=== PATIENT | male | born 1960 | race Caucasian/White ===

== ENCOUNTER 2016-10-28 14:20 | Emergency (ER) ==
[2016-10-28] MEDS ORDERED: SODIUM CHLORIDE 1,000 ML IV STA ×2 (14:28→15:58)
--- NOTE | 2016-10-28 14:29 | ED.PDOC ---
General ED Provider: Dr. MONIQUE MOREJON Chief Complaint: Dizziness Stated Complaint: Ritchie is a 56 year old male who has been outisde in the heat afew times this week. Today he went outside again for few hours and started feeling dizzy, sweaty and almost passed out in his car trying to get air conditioning. Time Seen by Physician: 15:00 Information Source: Patient, Family Exam Limitations: No limitations Primary Care Provider: GURPREET ALVAREZ Nursing and Triage Documentation Reviewed and Agree: Yes Neurological Complaint Exam - Syncope/Near Syncope Complaint/Exam Onset/Duration: 1 hour ago Symptoms Are: Still present Number of Episodes: 1 Episodes Witnessed: Yes Loss of Consciousness: No Associated Head Trauma: No Activity at Onset: With exertion Aggravating: None Alleviating: Reports: None Associated Signs and Symptoms: Reports: Decreased oral intake, Diaphoresis, Lightheadedness, Dizziness, Weakness. Denies: Pain, Vomiting, Diarrhea, GI blood loss, Short of air, Chest pain, Palpitations, AMS, Numbness, Headache, Seizure, Remote head trauma, Recent head trauma Cardiac Risk Factors: Reports: Diabetes GI Bleed Risk Factors: Reports: None JVD Present: No Carotid Bruit Present: No Rectal Heme Positive: No Glascow Coma Scale (see protocol): 15 Nystagmus Present: No Gag Reflex Present: Yes Meningeal Signs Positive: No Focal Weakness: Present: None Focal Sensory Loss: Present: None Gait: Normal [id number]: Normal Findings Romberg Test Positive: No Babinski Sign: Negative Right, Negative Left Heel to Toe Normal: Yes [place]-Hallpike Test Positive: No Differential Diagnoses: FL, TIA, Hypovolemia, Metabolic Reaction Quality Indicator For Non-Traumatic Chest Pain/Syncope: EKG Performed Review of Systems - Review Of Systems Constitutional: Reports: Weakness, Sweats, Loss of appetite Eyes: Reports: No symptoms Ears, Nose, Mouth, Throat: Reports: No symptoms Respiratory: Reports: No symptoms Cardiac: Reports: Lightheadedness, Other (near syncopy ) GI: Reports: No symptoms : Reports: No symptoms Musculoskeletal: Reports: No symptoms Skin: Reports: No symptoms Neurological: Reports: Headache, Weakness Endocrine: Reports: No symptoms Hematologic/Lymphatic: Reports: No symptoms All Other Systems: Reviewed and Negative Past Medical History - Past Medical History Previously Healthy: Yes Endocrine: Reports: DM 2, Dyslipidemia Cardiovascular: Reports: Hypertension Respiratory: Reports: None Hematological: Reports: None Gastrointestinal: Reports: None Genitourinary: Reports: None Neuro/Psych: Reports: None Musculoskeletal: Reports: None Cancer: Reports: None - Surgical History General Surgical History: Reports: Hernia Repair - Family History Family History: Reports: Diabetes Physical Exam - Physical Exam Appearance: Ill-appearing, Well-nourished Ill-appearing: Severe Eyes: LUIS ENRIQUE, EOMI, Conjunctiva clear ENT: Ears normal, Nose normal, Oropharynx normal Neck: Supple Respiratory: Airway patent, Breath sounds clear, Breath sounds equal, Respirations nonlabored Cardiovascular: RRR, Pulses normal, No rub, No murmur GI/: Soft, Nontender, No masses, Bowel sounds normal, No Organomegaly Musculoskeletal: Normal strength, ROM intact, No edema, No calf tenderness Skin: Warm, Dry, Normal color Neurological: Sensation intact, Motor intact, Cranial nerves intact, Alert, Oriented Psychiatric: Anxious Interpretation - Radiology Interpretation Radiology Interpretation By: Radiologist Radiology Results: Negative Exam Interpreted: CT Scan - 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 Rate: Normal Rhythm: Sinus Ectopy: None - EKG Interpretation Time of EKG #1: 14:21 Rate: Normal Rhythm: Sinus Ectopy: None [place]: NL ST Segment: Normal Re-Evaluation - Re-Evaluation Time of Re-Evaluation: 17:14 Status: Improved Vital Signs Stable: Yes (131/79) Critical Care Note - Critical Care Note Total Time (mins): 20 Course - Course Hematology/Chemistry: 10/28/16 14:25 10/28/16 14:25 Orders, Labs, Meds: Lab Review 10/28/16 14:25 WBC 10.08 RBC 5.10 Hgb 15.6 Hct 45.0 MCV 88.2 MCH 30.6 MCHC 34.7 RDW Coeff of [place] 12.2 Plt Count 202 Immature Gran % (Auto) 0.2 Neut % (Auto) 65.2 Lymph % (Auto) 25.2 [place] % (Auto) 7.6 Eos % (Auto) 1.4 Baso % (Auto) 0.4 Immature Gran # (Auto) 0.0 Neut # 6.6 Lymph # 2.5 [place] # 0.8 Eos # 0.1 Baso # 0.0 Sodium 138 Potassium 3.9 Chloride 102 Carbon Dioxide 20 L Anion Gap 19.9 BUN 16 Creatinine 1.35 H Estimated GFR (MDRD) 55.00 BUN/Creatinine Ratio 11.85 Glucose 286 H Calcium 9.2 Total Bilirubin 0.63 AST 22 ALT 34 Alkaline Phosphatase 76 Total Creatine Kinase 187 CK-MB (CK-2) 2.8 CK-MB (CK-2) % 1.59321 Troponin I < 0.0100 B-Natriuretic Peptide 18 Total Protein 7.4 Albumin 4.3 Globulin 3.1 Albumin/Globulin Ratio 1.39 Orders Category Date Time Status EKG-(ED ONLY) Stat CARDIO 10/28/16 14:28 Completed ACCUCHECK (ED) [ED ACCUCHECK ASSESSMENT] .ONCE EMERGENCY 10/28/16 15:04 Active 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 .ONCE EMERGENCY 10/28/16 14:27 Active ED IV/MEDIPORT/POWERPORT .ONCE EMERGENCY 10/28/16 14:27 Active B-TYPE NATRIURETIC PEPTIDE Stat LAB 10/28/16 14:25 Completed CBC W/ AUTO DIFF Stat LAB 10/28/16 14:25 Completed COMPREHENSIVE METABOLIC PANEL Stat LAB 10/28/16 14:25 Completed CREATINE KINASE Stat LAB 10/28/16 14:25 Completed TROPONIN I Stat LAB 10/28/16 14:25 Completed 0.9 % Sodium Chloride [Saline Flush] MEDS 10/28/16 14:27 Ordered 1 syr IVF PRN PRN Sodium Chloride 0.9% [Sodium Chloride] 1,000 ml MEDS 10/28/16 14:28 Discontinued IV BOLUS Sodium Chloride 0.9% [Sodium Chloride] 1,000 ml MEDS 10/28/16 15:58 Discontinued IV BOLUS CHEST, 1V AP ONLY Stat RADS 10/28/16 14:[address] HEAD W/O CONTRAST Stat RADS 10/28/16 14:28 Completed Medications Generic Name Dose Route Start Last Admin Trade Name Freq PRN Reason Stop Dose Admin Sodium Chloride 1 syr 10/28/16 14:27 10/28/16 15:04 Saline Flush IVF 1 syr PRN PRN Administration To flush IV Discontinued Medications Generic Name Dose Route Start Last Admin Trade Name Freq PRN Reason Stop Dose Admin Sodium Chloride 1,000 mls @ 1,000 mls/hr 10/28/16 14:28 10/28/16 15:00 Sodium Chloride IV 10/28/16 15:27 1,000 mls/hr BOLUS STA Administration Sodium Chloride 1,000 mls @ 1,000 mls/hr 10/28/16 15:58 10/28/16 16:06 Sodium Chloride IV 10/28/16 16:57 1,000 mls/hr BOLUS STA Administration Vital Signs: Temp Pulse Resp BP Pulse Ox 10/28/16 14:20 96.8 F L 92 H 20 86/58 L 91 L Departure - Departure Time of Disposition: 17:10 Disposition: HOME SELF-CARE Discharge Problem: Heat exhaustion Qualifiers: Encounter type: initial encounter Qualifier Code: (T67.5XXA) Heat exhaustion, unspecified, initial encounter Hypotension Qualifiers: Hypotension type: orthostatic hypotension Qualifier Code: (I95.1) Orthostatic hypotension Instructions: Heat Exhaustion (ED) Condition: Stable Pt referred to PMD for follow-up: Yes Additional Instructions: Push fluids Stay Cool Follow up with PCP in 2 days return if worse. Hold your Blood pressure medications and resume only when you blood pressure is > 140/80 Allergies/Adverse Reactions: Allergies codeine Adverse Reaction (Verified 10/28/16 14:39) Home Medications: Ambulatory Orders Ibuprofen 800 mg PO DIRECTED PRN 10/28/16 Lisinopril/Hydrochlorothiazide [Lisinopril-Hctz 20-25 mg Tab] 20 mg PO DAILY Metformin HCl [Metformin HCl ER] 1,000 mg PO BID 10/28/16 Methocarbamol [Robaxin-750] 1 tab PO BID 10/28/16 Metoprolol Succinate [Toprol Xl] 25 mg PO DAILY 10/28/16 Pravastatin Sodium [Pravachol] 40 mg PO BEDTIME 10/28/16 Disposition Discussed With: Patient, Family
[2016-10-28 14:35] VITALS: BP 86/58; TEMP 96.8; BMI 30.9
[2016-10-28 14:38] LABS: BASOPHILS % (AUTO) 0.4 % (0.0-3.0); EOSINOPHILS # (AUTO) 0.1 K/ul (0.0-0.7); EOSINOPHILS % (AUTO) 1.4 % (0.0-7.0); HEMOGLOBIN 15.6 g/dl (14.0-18.0); IMMATURE GRANULOCYTE % (AUTO) 0.2 % (0.0-5.0); LYMPHOCYTES # (AUTO) 2.5 K/uL (0.60-3.4); LYMPHOCYTES % (AUTO) 25.2 (10.0-50.0); MEAN CORPUSCULAR HEMOGLOBIN 30.6 pg (27.0-31.0); MEAN CORPUSCULAR HGB CONC 34.7 (31.8-35.4); MEAN CORPUSCULAR VOLUME 88.2 fl (80.0-94.0); MONOCYTES # (AUTO) 0.8 K/uL (0.4-2.0); MONOCYTES % (AUTO) 7.6 (0-10); NEUTROPHILS # (AUTO) 6.6 K/ul (2.0-6.9); NEUTROPHILS % (AUTO) 65.2; PLATELET COUNT 202 10^3/uL (140-440); WHITE BLOOD COUNT 10.08 K/ul (4.2-10.2)
--- NOTE | 2016-10-28 14:55 | CT ---
EXAM: CT scan head without contrast. HISTORY: Syncope COMPARISON: None. TECHNIQUE: Axial scans acquired 5 mm slice thicknesses. FINDINGS: There is no subdural hematoma or intracranial hemorrhage seen. There is no shift of midl ine structures. [place]-white matter differentiation is maintained. Ventricles are normal in size. T he paranasal sinuses and mastoid air cells appear clear. IMPRESSION: Negative CT scan head. No intracranial hemorrhage, CVA, mass or hydrocephalus is seen.
[2016-10-28 15:14] LABS: ALANINE AMINOTRANSFERASE 34 U/L (12-78); ALBUMIN 4.3 g/dL (3.4-5.0); ALBUMIN/GLOBULIN RATIO 1.39; ALKALINE PHOSPHATASE 76 U/L (50-136); ANION GAP 19.9; ASPARTATE AMINO TRANSFERASE 22 U/L (15-37); BILIRUBIN,TOTAL 0.63 mg/dL (0.00-1.20); BLOOD UREA NITROGEN 16 mg/dL (7-18); BUN/CREATININE RATIO 11.85; CALCIUM 9.2 mg/dL (8.2-10.2); CARBON DIOXIDE 20 mmol/L (21-32); CHLORIDE 102 mmol/L (98-107); CREATINE KINASE 187 U/L; CREATININE 1.35 mg/dL (0.60-1.10); GLUCOSE 286 mg/dL (70-100); POTASSIUM 3.9 mmol/L (3.5-5.1); SODIUM 138 mmol/L (136-145); TOTAL PROTEIN 7.4 g/dL (6.4-8.2)
[2016-10-28 15:16] LABS: CREATINE KINASE MB 2.8 ng/ml (0.0-3.6)
--- NOTE | 2016-10-28 17:49 | DI ---
EXAM: Single view of the chest. History: Weakness. Comparison: Chest radiograph 07/21/2008 Findings: Heart size is normal. No focal consolidation. No appreciable pleural fluid and no pneum othorax. No acute osseous abnormalities. Impression: No acute cardiopulmonary process.
== END 2016-10-28 17:10 | disposition home or self-care (01) ==
LOC: ED 14:20
DX: T67.5XXA Heat exhaustion, unspecified, initial encounter (principal); I95.1 Orthostatic hypotension; E11.9 Type 2 diabetes mellitus without complications; E78.5 Hyperlipidemia, unspecified; Z79.899 Other long term (current) drug therapy
CPT/HCPCS: 36415; 80053; 82550; 82553; 82962; 83880; 84484; 85025; 93005; 93010; 96360; 96361; 99283